=== PATIENT | female | born 1990 | race Caucasian/White ===

== ENCOUNTER 2019-03-03 11:39 | Observation (INO) | payer OTHER ==
[2019-03-03] MEDS ORDERED: NS 1,000 ML IV ONE (12:06)
--- NOTE | 2019-03-03 12:09 | EDPHY ---
H & P Time Seen by Provider: 03/03/19 11:52 HPI/ROS: Chief complaint. Abdominal pain HPI. 28-year-old female with abdominal pain since yesterday. Gradual onset. It is right lower quadrant. No radiation. It is described as achy. No similar symptoms previously. Some mild constipation the last 24 hr. No urinary symptoms. No fever. It hurts to walk and move. No previous abdominal surgery. No chest pain or shortness of breath. Last meal was a bowl of cereal this morning at 7:00 a.m. ROS 10 systems were reviewed and negative with the exception of the elements mentioned in the history of present illness Past Medical/Surgical History: Healthy Social History: Single, nonsmoker, no alcohol Smoking Status: Never smoked Physical Exam: General Appearance: Alert pleasant well-developed female mild distress. Vital signs are stable Eyes: Equal round reactive. No injection. ENT, Mouth: Mucous membranes are moist. Respiratory: There are no retractions, lungs are clear to auscultation. Cardiovascular: Regular rate and rhythm. Gastrointestinal: Abdomen is soft with tenderness palpation both at McBurney's point and in the right adnexal area. No left-sided abdominal tenderness. No masses or organomegaly. Normal bowel sounds Neurological: Awake and alert, sensory and motor exams grossly normal. Skin: Warm and dry, no rashes. Musculoskeletal: Neck is supple nontender. Extremities symmetrical, full range of motion. Psychiatric: Patient is oriented X 3, there is no agitation. Constitutional: Initial Vital Signs Temperature (C) 36.5 C 03/03/19 11:40 Heart Rate 75 03/03/19 11:40 Respiratory Rate 16 03/03/19 11:40 Blood Pressure 144/75 H 03/03/19 11:40 O2 Sat (%) 99 03/03/19 11:40 O2 Delivery Mode Room Air Allergies/Adverse Reactions: No Known Allergies Allergy (Unverified 03/03/19 11:44) Home Medications: Medication Instructions Recorded NK [No Known Home Meds] 03/03/19 Medical Decision Making - Diagnostics Imaging Results: Imaging Impressions Abdomen Ultrasound 03/03/19 12:06 Impression: Trace free fluid. Appendix not visualized. Findings discussed with Emergency Department physician, Live [facility] on 2018, 13:23. Pelvic ultrasound shows normal ovaries. Trace free fluid in the pelvis. Appendix not seen CT abdomen and pelvis with IV contrast shows acute appendicitis. Stranding. Enlarged. Not ruptured Procedures: IV normal saline IV Invanz ED Course/Re-evaluation: Re-evaluation at 2:00 p.m.. Patient and I discussed imaging study results, treatment plan including recommendation for admission and surgery. She expresses understanding and agreement Consulted discussed case with Dr. Sánchez on-call for surgery who will see the patient in the ED Differential Diagnosis: I considered ovarian cyst, ectopic , urinary tract infection, appendicitis - Data Points Laboratory Results: Laboratory Results 03/03/19 12:00 03/03/19 12:00 03/03/19 03/03/19 03/03/19 12:30 12:00 12:00 WBC RBC Hgb Hct MCV MCH MCHC RDW Plt Count MPV Neut % (Auto) Lymph % (Auto) [place] % (Auto) Eos % (Auto) Baso % (Auto) Nucleat RBC Rel Count Absolute Neuts (auto) Absolute Lymphs (auto) Absolute Monos (auto) Absolute Eos (auto) Absolute Basos (auto) Absolute Nucleated RBC Immature Gran % Immature Gran # Sodium 137 mEq/L mEq/L (135-145) Potassium 4.0 mEq/L mEq/L (3.5-5.2) Chloride 104 mEq/L mEq/L (97-110) Carbon Dioxide 23 mEq/l mEq/l (22-31) Anion Gap 10 mEq/L mEq/L (6-14) BUN 10 mg/dL mg/dL (7-23) Creatinine 0.7 mg/dL mg/dL (0.6-1.0) Estimated GFR > 60 Glucose 82 mg/dL mg/dL (70-100) Calcium 9.2 mg/dL mg/dL (8.5-10.4) Beta HCG, Qual NEGATIVE Urine Color PALE YELLOW Urine Appearance CLEAR Urine pH 6.0 (5.0-7.5) Ur Specific [place] 1.002 (1.002-1.030) Urine Protein NEGATIVE (NEGATIVE) Urine Ketones NEGATIVE (NEGATIVE) Urine Blood 1+ H (NEGATIVE) Urine Nitrate NEGATIVE (NEGATIVE) Urine Bilirubin NEGATIVE (NEGATIVE) Urine Urobilinogen NEGATIVE EU EU (0.2-1.0) Ur Leukocyte Esterase 2+ H (NEGATIVE) Urine RBC 1-3 /hpf /hpf (0-3) Urine WBC 3-5 /hpf H /hpf (0-3) Ur Epithelial Cells TRACE /lpf /lpf (NONE-1+) Urine Bacteria TRACE /hpf H /hpf (NONE SEEN) Urine Glucose NEGATIVE (NEGATIVE) 03/03/19 12:00 WBC 6.96 10^3/uL 10^3/uL (3.80-9.50) RBC 3.99 10^6/uL L 10^6/uL (4.18-5.33) Hgb 12.3 g/dL L g/dL (12.6-16.3) Hct 36.4 % L % (38.0-47.0) MCV 91.2 fL fL (81.5-99.8) MCH 30.8 pg pg (27.9-34.1) MCHC 33.8 g/dL g/dL (32.4-36.7) RDW 11.9 % % (11.5-15.2) Plt Count 201 10^3/uL 10^3/uL (150-400) MPV 10.1 fL fL (8.7-11.7) Neut % (Auto) 57.6 % % (39.3-74.2) Lymph % (Auto) 33.3 % % (15.0-45.0) [place] % (Auto) 7.5 % % (4.5-13.0) Eos % (Auto) 0.9 % % (0.6-7.6) Baso % (Auto) 0.4 % % (0.3-1.7) Nucleat RBC Rel Count 0.0 % % (0.0-0.2) Absolute Neuts (auto) 4.01 10^3/uL 10^3/uL (1.70-6.50) Absolute Lymphs (auto) 2.32 10^3/uL 10^3/uL (1.00-3.00) Absolute Monos (auto) 0.52 10^3/uL 10^3/uL (0.30-0.80) Absolute Eos (auto) 0.06 10^3/uL 10^3/uL (0.03-0.40) Absolute Basos (auto) 0.03 10^3/uL 10^3/uL (0.02-0.10) Absolute Nucleated RBC 0.00 10^3/uL 10^3/uL (0-0.01) Immature Gran % 0.3 % % (0.0-1.1) Immature Gran # 0.02 10^3/uL 10^3/uL (0.00-0.10) Sodium Potassium Chloride Carbon Dioxide Anion Gap BUN Creatinine Estimated GFR Glucose Calcium Beta HCG, Qual Urine Color Urine Appearance Urine pH Ur Specific [place] Urine Protein Urine Ketones Urine Blood Urine Nitrate Urine Bilirubin Urine Urobilinogen Ur Leukocyte Esterase Urine RBC Urine WBC Ur Epithelial Cells Urine Bacteria Urine Glucose Medications Given: Discontinued Medications Sodium Chloride (Ns) 1,000 mls @ 0 mls/hr IV EDNOW ONE; Wide Open PRN Reason: Protocol Stop: 03/03/19 12:07 Last Admin: 03/03/19 12:13 Dose: 1,000 mls Departure - Departure Disposition: [facility] Inpatient Acute Clinical Impression: Acute appendicitis Qualifiers: Acute appendicitis type: with localized peritonitis Appendicitis gangrene presence: without gangrene Appendicitis perforation presence: without perforation Appendicitis abscess presence: without abscess Qualified Code(s): K35.30 - Acute appendicitis with localized peritonitis, without perforation or gangrene Condition: Good Referrals: Maria Fernanda Newman MD [Primary Care Provider] - As per Instructions
[2019-03-03 12:16] LABS: PLATELET COUNT 201 10^3/uL (150-400)
[2019-03-03] MEDS ORDERED: IOPAMIDOL (ISOVUE-300) 100 ML BTL ONE (13:27)
[2019-03-03] MEDS ORDERED: ERTAPENEM 1 GM in NS 100 ML IV ONE (13:56)
[2019-03-03] MEDS ORDERED: LR 1,000 ML IV ONE (14:46)
[2019-03-03] MEDS ORDERED: fentaNYL 100 MCG/2 ML INJ IVP ONE (14:52)
[2019-03-03] MEDS ORDERED: fentaNYL 100 MCG/2 ML INJ ONE (14:56)
[2019-03-03] MEDS ORDERED: BUPIVACAINE 0.5% 30 ML SDV ONE (15:39)
[2019-03-03] MEDS ORDERED: HEPARIN 1000 UNIT/1 ML MDV ONE (15:40)
[2019-03-03] MEDS ORDERED: ceFAZolin 1 GM/5 ML SYR ONE (15:40)
--- NOTE | 2019-03-03 15:44 | PDANEPAE ---
ANE History of Present Illness laparoscopic appendectomy ANE Past Medical History Past Medical History: healthy - Pulmonary History Hx Oxygen in Use at Home: No Hx Sleep Apnea: No - Endocrine History Hx Diabetes: No ANE Review of Systems Review of systems is: negative Review of Systems: - Exercise capacity Exercise capacity: >=4 METS ANE Patient History - Allergies Allergies/Adverse Reactions: No Known Allergies Allergy (Verified 03/03/19 14:21) - Home Medications Home medications: home medication list seen and reviewed Home Medications: Cetirizine [ZyrTEC 10 mg (*)] 10 mg PO DAILY PRN 03/03/19 [Last Taken 02/28/19] Ethinyl Estradiol/Drospirenone [Drospirenone-Ee 3-0.02 mg Tab] 1 each PO HS [Last Taken 03/02/19] Ibuprofen [Motrin (*)] 200 mg PO DAILY PRN 03/03/19 [Last Taken 03/03/19] - NPO status NPO Since - Liquids (Date): 03/03/19 NPO Since - Liquids (Time): 09:30 NPO Since - Solids (Date): 03/03/19 NPO Since - Solids (Time): 08:30 - Anes Hx Anes Hx: no prior problems - Smoking Hx Smoking Status: Never smoked - Family Anes Hx Family Anes Hx: none ANE Labs/Vital Signs - Labs Result Diagrams: 03/03/19 12:00 03/03/19 12:00 - Vital Signs Vital Signs: reviewed preoperatively; see RN documention for details Blood Pressure: 103/70 Heart Rate: 67 Respiratory Rate: 16 O2 Sat (%): 98 Height: 154 cm Weight: 60 kg ANE Physical Exam - Airway Neck exam: FROM Mallampati Score: Class 1 Mouth exam: normal dental/mouth exam - Pulmonary Pulmonary: no respiratory distress - Cardiovascular Cardiovascular: regular rate and rhythym - ASA Status ASA Status: I, E ANE Anesthesia Plan Anesthesia Plan: general endotracheal anesthesia (RSI)
[2019-03-03] MEDS ORDERED: MIDAZOLAM 2 MG/2 ML VIAL IVP ONE (15:50)
[2019-03-03] MEDS ORDERED: MIDAZOLAM 2 MG/2 ML VIAL ONE (15:56)
[2019-03-03] MEDS ORDERED: DEXAMETHASONE 4 MG/ML VIAL ONE (16:13)
[2019-03-03] MEDS ORDERED: fentaNYL 250 MCG/5 ML INJ ONE (16:13)
[2019-03-03] MEDS ORDERED: ROCURONIUM 50 MG/5 ML VIAL ONE (16:13)
[2019-03-03] MEDS ORDERED: ONDANSETRON 4 MG/2 ML VIAL ONE (16:13)
[2019-03-03] MEDS ORDERED: LIDOCAINE 2% 5 ML SDV ONE (16:14)
[2019-03-03] MEDS ORDERED: PROPOFOL 200 MG/20 ML VIAL ONE (16:14)
[2019-03-03] MEDS ORDERED: KETOROLAC 30 MG/1 ML SDV ONE (16:43)
[2019-03-03] MEDS ORDERED: SUGAMMADEX SODIUM 200 MG/2 ML VIAL IVP ONE (16:44)
[2019-03-03] MEDS ORDERED: HYDROmorphONE/DILAUDID 1 MG/ML INJ IVP PRN ×2 (17:00→17:10)
[2019-03-03] MEDS ORDERED: oxyCODONE IR 5 MG TAB PO PRN ×2 (17:01→17:10)
[2019-03-03] MEDS ORDERED: ONDANSETRON 4 MG/2 ML VIAL IVP PRN (17:02)
[2019-03-03] MEDS ORDERED: ONDANSETRON DISINTEGRATING 4 MG TAB PO PRN (17:02)
--- NOTE | 2019-03-03 17:03 | POSTOPPROG ---
Post Op Note Date of Operation: 03/03/19 Surgeon: Everette Sánchez Lithographing Machine Operator: Scotty Anesthesiologist: Niraj Anesthesia: GET(General Endotracheal) Pre-op Diagnosis: Acute appendicits Post-op Diagnosis: same Indication: same, RLQ pain Procedure: Lap appendectomy Findings: Inflammed appy Inf/Abcess present in the surg proc area at time of surgery?: No Depth: Organ Space EBL: Minimal Bowel Protocol: N/A Clean Closure Performed: N/A Specimen(s): Appendix- permanent
[2019-03-03] MEDS ORDERED: ACETAMINOPHEN 325 MG TAB PO PRN (17:07)
[2019-03-03] MEDS ORDERED: PROMETHAZINE HCL 25 MG/ML INJ IVP PRN (17:10)
[2019-03-03] MEDS ORDERED: fentaNYL 100 MCG/2 ML INJ IVP PRN (17:10)
[2019-03-03] MEDS ORDERED: NALOXONE HCL 0.4 MG/ML INJ IVP PRN (17:10)
--- NOTE | 2019-03-03 17:13 | POSTANESTH ---
Post Anesthetic Evaluation Cardiovascular Status: Normal, Stable, Similar to Pre-Op Cond Respiratory Status: Normal, Stable, Similar to Pre-op Cond. Level of Consciousness/Mental Status: Can Participate in Eval, Mildly Sleepy, Arousable Pain Control: Adequate, Prn Tx Ordered Nausea/Vomiting Control: Adequate, Prn Tx Ordered Complications Possibly Related to Anesthesia: None Noted
[2019-03-03] MEDS ORDERED: oxyCODONE IR 5 MG TAB ONE (17:16)
[2019-03-03] MEDS ORDERED: ACETAMINOPHEN 325 MG TAB ONE (17:16)
[2019-03-03] MEDS: KETOROLAC 15 MG/1 ML SDV IVP SCH ×4 (17:47→23:30)
[2019-03-04] MEDS: KETOROLAC 15 MG/1 ML SDV IVP SCH (05:33)
[2019-03-04 09:17] VITALS: BP 107/64
--- NOTE | 2019-03-04 10:10 | ASMTDCNOTE ---
Case Management Discharge Discharge Order Complete? Answers: Yes Patient to Obtain Answers: via Family Medications Transportation Arranged Answers: Family/Friends Discharge Comments Notes: Pt is a 28 yo F who presents with appendicitis. Underwent Lap Appendectomy. No therapies ordered. Pt is scheduled for discharge independently. CM met with her. No CM needs identified. Pt to arrange transportation and said she doesn't need any assistance obtaining meds or scheduling outpatient follow-up. Date Signed: 03/04/2019 10:09 AM Electronically Signed By:MALINDA Mendieta
--- NOTE | 2019-03-04 10:13 | ASDISCHSUM ---
Discharge Information Plan Status:Home with No Needs Medically Cleared to Leave: Discharge Date: CM D/C Disposition:Home, Routine, Self-Care ADT D/C Disposition:Home, Routine, Self-Care Projected Discharge Date:03/04/2019 12:00 AM Transportation at D/C: Discharge Delay Reason: Follow-Up Date:03/04/2019 12:00 AM Discharge Slot: Final Diagnosis: Placement Information Patient Contact Information Contact Name:GEORGE Relationship:Life Partner Address:[address] [place] [address] Work Phone: City:[place] Alternate Phone: [facility]/Zip Code:[place] [address] Email: Financial Information Financial Class:[facility] Primary Plan Desc:[employer] Primary Plan Number:[id number] Secondary Plan Desc: Secondary Plan Number: Assessment Information LACE LACE Length of stay for Answers: Less than 1 day current admission Acuity / Level of Answers: No Care: Did the patient have an inpatient admission? # of Emergency department Answers: 1-2 visits in the last 6 months Score: 1 Date Signed: 03/04/2019 10:12 AM Electronically Signed By:MALINDA Mendieta Case Management Discharge Plan Note Case Management Discharge Discharge Order Complete? Answers: Yes Patient to Obtain Answers: via Family Medications Transportation Arranged Answers: Family/Friends Discharge Comments Notes: Pt is a 28 yo F who presents with appendicitis. Underwent Lap Appendectomy. No therapies ordered. Pt is scheduled for discharge independently. CM met with her. No CM needs identified. Pt to arrange transportation and said she doesn't need any assistance obtaining meds or scheduling outpatient follow-up. Date Signed: 03/04/2019 10:09 AM Electronically Signed By:MALINDA Mendieta Intervention Information
--- NOTE | 2019-03-09 13:05 | GOP ---
[f rep st] OPERATIVE REPORT DATE OF OPERATION: 03/03/2019 SURGEON: Everette Sánchez MD DIAPHRAGM BUILDER: Christal Fajardo NP. ANESTHESIA: Chino Healy MD. PREOPERATIVE DIAGNOSIS: Acute appendicitis. POSTOPERATIVE DIAGNOSIS: Acute appendicitis. PROCEDURE PERFORMED: Laparoscopic appendectomy. FINDINGS: Patient was found to have acute appendicitis without perforation. DESCRIPTION OF PROCEDURE: The patient was taken to the operating room where she received satisfactor y general endotracheal anesthesia by Dr. Healy. She was placed in supine position, prepped and dr aped in usual sterile fashion. An infraumbilical incision was made. A Veress needle inserted. Pneu moperitoneum was established. Trocar was introduced. Laparoscope introduced. Good visualization wa s obtained. Two other trocars placed in the lower abdomen under direct vision. The appendix was rajendra ed up from the retro ileal position. The mesoappendix was divided with the Harmonic Scalpel until th e base was skeletonized, and it was then divided with the Endo ALEX stapler and placed in a specimen b ag and extracted through the upper midline port site. Hemostasis was assured. There was no evidence of abscess or further contamination. The trocar was removed under direct vision. Trocar sites were closed with 0 Vicryl for the fascia, 4-0 Monocryl subcuticular stitch for the skin. All layers infi ltrated with 0.5% Marcaine. Copy requested to: Maria Fernanda Newman MD /[id number]/MODL
== END 2019-03-04 10:46 | disposition home or self-care (01) ==
LOC: INTOOBSV 14:09 → F1N 17:40
PROVIDERS: ADMIT Surgery; ATTEND Surgery
PROC: 0DTJ4ZZ Resection of Appendix, Percutaneous Endoscopic Approach (ICD-10-PCS; principal; 2019-03-03 16:00)
DX: K35.80 Unspecified acute appendicitis (principal); E86.9 Volume depletion, unspecified
CPT/HCPCS: 44970; 74177; 76705; 76856; 96361; 96365; 96375; 96376; 99285; G0378; J1100; J1335; J1885; J2250; J2405; J2704; J3010; Q9967